=== PATIENT | female | born 1940 | race Two or more races ===

== ENCOUNTER 2019-10-05 21:23 | Emergency (ER) | payer OTHER ==
[~2019-10-05] VITALS: Ht 152.4 cm; Wt 69.9 kg
== END 2019-10-05 22:31 | disposition home or self-care (01) ==
LOC: ER 21:23
DX: N30.81 Other cystitis with hematuria (principal)

== ENCOUNTER 2019-11-17 03:13 | Emergency (ER) | payer OTHER ==
[~2019-11-17] VITALS: Ht 152.4 cm; Wt 74.4 kg
[2019-11-17] MEDS ORDERED: ELIQUIS5 MG (03:23)
[2019-11-17] MEDS ORDERED: COZAAR50 MG (03:23)
[2019-11-17] MEDS ORDERED: CRESTOR20 MG (03:24)
[2019-11-17] MEDS ORDERED: SYNTHROID50 MCG (03:24)
[2019-11-17] MEDS ORDERED: SERTRALINE20 MG/1 ML (03:24)
[2019-11-17] MEDS ORDERED: TENORMIN25 MG (03:24)
[2019-11-17] MEDS ORDERED: GRALISE600 MG (03:25)
[2019-11-17] MEDS ORDERED: ZYNCOF 20-400120 ML PO (05:11)
== END 2019-11-17 06:31 | disposition home or self-care (01) ==
LOC: ER 03:13
DX: J40 Bronchitis, not specified as acute or chronic (principal)

== ENCOUNTER 2021-06-21 12:37 | Outpatient (CLI) | payer OTHER ==
[~2021-06-21 12:37] MED LIST: COZAAR50 MG; CRESTOR20 MG; ELIQUIS5 MG; GRALISE600 MG; SERTRALINE20 MG/1 ML; SYNTHROID50 MCG; TENORMIN25 MG; ZYNCOF 20-400120 ML PO
== END 2021-06-21 12:43 | disposition home or self-care (01) ==
LOC: RAD 12:37
PROVIDERS: ATTEND Orthopaedic Surgery Foot and Ankle Surgery
DX: M17.0 Bilateral primary osteoarthritis of knee (principal); M21.769 Unequal limb length (acquired), unspecified tibia and fibula

== ENCOUNTER 2021-06-27 15:13 | Outpatient (CLI) | payer OTHER | END 2021-06-27 15:25 | disposition home or self-care (01) | LOC: RAD 15:13 | PROVIDERS: ATTEND Orthopaedic Surgery Foot and Ankle Surgery | DX: M43.26 Fusion of spine, lumbar region (principal) ==

== ENCOUNTER 2022-06-04 13:35 | Outpatient (CLI) | payer OTHER | END 2022-06-04 13:42 | disposition home or self-care (01) | LOC: RAD 13:35 | PROVIDERS: ATTEND Orthopaedic Surgery Foot and Ankle Surgery | DX: M41.25 Other idiopathic scoliosis, thoracolumbar region (principal) ==

== ENCOUNTER → 2022-06-17 | Emergency (ER) | payer OTHER ==
[~2022-06-17] VITALS: Ht 152.4 cm; Wt 72.6 kg
[~2022-06-17] MED LIST changes: +PLAVIX75 MG
== END | disposition left against medical advice (07) ==
LOC: ER 19:21
DX: Z53.21 Procedure and treatment not carried out due to patient leaving prior to being seen by health care provider (principal)

== ENCOUNTER 2022-06-18 14:23 | Emergency (ER) | payer OTHER ==
[~2022-06-18] VITALS: Ht 152.4 cm; Wt 73.9 kg
[~2022-06-18 14:23] MED LIST changes: -PLAVIX75 MG
[2022-06-18] MEDS ORDERED: PLAVIX75 MG (14:48)
== END 2022-06-18 18:34 | disposition home or self-care (01) ==
LOC: ER 14:23
DX: M79.662 Pain in left lower leg (principal); Z88.0 Allergy status to penicillin; Z88.1 Allergy status to other antibiotic agents

== ENCOUNTER 2023-01-22 13:52 | Outpatient (CLI) | payer OTHER ==
[~2023-01-22 13:52] MED LIST changes: +PLAVIX75 MG
== END 2023-01-22 13:54 | disposition home or self-care (01) ==
LOC: TOM 13:52
PROVIDERS: ATTEND Orthopaedic Surgery Foot and Ankle Surgery
DX: M43.22 Fusion of spine, cervical region (principal)